=== PATIENT | female | born 1985 | race Caucasian/White ===

== ENCOUNTER 2025-06-23 12:51 | Outpatient (CLI) | payer BC, SELFPAY ==
--- NOTE | 2025-06-23 13:00 | CRLHL7_ITS ---
For Patients: As a result of the Century Cures Act, medical imaging exams and procedure reports are released immediately into your electronic medical record. You may view this report before your referring provider. If you have questions, please contact your health care provider. INDICATION: Dating and viability TECHNIQUE: Ultrasound pelvis transabdominal and transvaginal for better assessment or to better visualize the endometrium. Real-time sonographic images with spectral and color Doppler imaging of the ovaries were obtained. COMPARISON: None. FINDINGS: Uterus is normal in size and attenuation. Endometrial canal thickness measures 6 millimeter. There is no intrauterine gestational sac. No yolk sac or pole. Bilateral ovaries are normal in size and echotexture. Right ovary measures 3.1 x 1.6 x 2.0 cm. Left ovary measures 3.0 x 1.8 x 1.9 cm. Preserved vascularity. No suspicious adnexal mass identified. No free fluid in cul-de-sac. Incidental note of few prominent vessels on left adnexa. IMPRESSION: No evidence of intrauterine gestation. No suspicious adnexal mass to suggest ectopic adnexal . Correlate with quantitive serum beta HCG to exclude ectopic/intra-abdominal versus failed intrauterine . Findings were communicated with Dr. Lewis at 2:25 pm on 06/23/25. Dictated by Ty Rodrigez MD @ 06/23/2025 2:19:27 PM (Electronically Signed)
== END 2025-06-23 12:52 | disposition home or self-care (01) ==
PROVIDERS: Visit Provider Physician Assistant
DX: O20.0 Threatened abortion (principal); O36.80X0 Pregnancy with inconclusive fetal viability, not applicable or unspecified
CPT/HCPCS: 76817

== ENCOUNTER 2025-06-23 14:05 | Outpatient (CLI) | payer BC, SELFPAY | END 2025-06-23 14:06 | disposition home or self-care (01) | LOC: NFLDREF 14:05 | PROVIDERS: Visit Provider Physician Assistant | DX: O36.80X0 Pregnancy with inconclusive fetal viability, not applicable or unspecified (principal) | CPT/HCPCS: 84702 ==